=== PATIENT | female | born 1995 | race Caucasian/White ===

== ENCOUNTER 2023-03-20 21:58 | Inpatient (IN) | payer BC ==
[2023-03-20] MEDS ORDERED: Lidocaine 1% 50 ML MDV INJECT ONE (22:28)
[2023-03-20] MEDS ORDERED: Sodium Chloride 0.9% 10 ML Syringe FLUSH PRN (22:28)
[2023-03-20] MEDS ORDERED: Nalbuphine HCl 10 MG/ 1ML Amp IVPUSH PRN (22:28)
[2023-03-20] MEDS ORDERED: Ondansetron 4 MG/2 ML SDV IVPUSH PRN (22:28)
[2023-03-20] MEDS ORDERED: Oxytocin/Lactated Ringers 10 UNIT/1,000 ML BAG IV SCH (22:30)
[2023-03-20] MEDS ORDERED: Ampicillin 2 GM in Sodium Chloride 0.9% 100 ML IV ONE (22:45)
[2023-03-20 22:46] LABS: BASOPHILS PERCENT AUTO 0.2 % (0.0-1.0); EOSINOPHILS ABSOLUTE AUTO 0.4 K/mm3 (0.0-0.4); EOSINOPHILS PERCENT AUTO 3.3 % (0.0-6.0); HEMATOCRIT 35.5 % (37.0-47.0); HEMOGLOBIN 12.5 gm/dl (12.0-16.0); IMMATURE GRAN ABSOLUTE AUTO 0.05 K/mm3 (0.00-0.05); IMMATURE GRAN PERCENT AUTO 0.4 % (0.0-0.4); LYMPHOCYTES ABSOLUTE AUTO 2.1 K/mm3 (1.0-4.8); LYMPHOCYTES PERCENT AUTO 18.5 % (24.0-44.0); MEAN CORPUSCULAR HGB CONC 35.2 g/dl (32.0-36.0); MEAN CORPUSCULAR VOLUME 88.1 fl (83.0-99.0); MEAN PLATELET VOLUME 9.6 fl (9.4-12.3); MONOCYTES ABSOLUTE AUTO 0.8 K/mm3 (0.0-0.8); MONOCYTES PERCENT AUTO 7.1 % (0.0-8.0); NEUTROPHILS PERCENT AUTO 70.5 % (41.0-71.0); PLATELET COUNT,PLT 269 K/mm3 (150-400); RED BLOOD CELL COUNT 4.03 M/mm3 (4.10-5.30); WHITE BLOOD CELL COUNT,WBC 11.32 K/mm3 (3.9-11.3)
[2023-03-20] MEDS: Lactated Ringers 1,000 ML IV SCH (23:00)
[2023-03-21] MEDS: Lactated Ringers 1,000 ML IV SCH ×2 (00:44→02:37)
[2023-03-21] MEDS ORDERED: diphenhydrAMINE 50 MG/ML SDV IVPUSH PRN (01:23)
[2023-03-21] MEDS ORDERED: Bupivacaine/fentaNYL/NS 100 ML Bag EPIDUR PRN (01:23)
[2023-03-21] MEDS ORDERED: ePHEDrine 50 MG/ML SDV IVPUSH PRN (01:23)
[2023-03-21] MEDS ORDERED: fentaNYL 100 MCG/2 ML SDV EPIDUR PRN (01:23)
[2023-03-21] MEDS: Ampicillin 1 GM in Sodium Chloride 0.9% 100 ML IV SCH ×2 (02:37→07:18)
[2023-03-21] MEDS ORDERED: Lidocaine 1.5% with EPINEPHrine 1:200,000 5 ML Amp ONE (06:00)
[2023-03-21] MEDS ORDERED: Bupivacaine 0.25% 10 ML SDV ONE (06:00)
[2023-03-21] MEDS ORDERED: Hydrocortisone Acetate 25 MG Supp RECTAL PRN (10:14)
[2023-03-21] MEDS ORDERED: Benzocaine/Menthol 20%-0.5% Spray 78 GM Cannister TOP PRN (10:14)
[2023-03-21] MEDS ORDERED: Acetaminophen 325 MG Tab PO PRN (10:14)
[2023-03-21] MEDS ORDERED: Docusate Sodium 100 MG Cap PO PRN (10:14)
[2023-03-21] MEDS ORDERED: Magnesium Hydroxide 400 MG/5 ML Susp 30 ML Cup PO PRN (10:14)
[2023-03-21] MEDS ORDERED: Oxytocin/Lactated Ringers 10 UNIT/1,000 ML BAG IV SCH (10:15)
[2023-03-21] MEDS: Witch Hazel Medicated Pads 40/Jar TOP PRN (12:10)
[2023-03-21] MEDS: Ibuprofen 600 MG Tab PO PRN ×2 (15:09→21:12)
[2023-03-22] MEDS: Ibuprofen 600 MG Tab PO PRN (02:20)
[2023-03-22] MEDS ORDERED: Prenatal Multivitamin with Calcium/Folic Acid/Iron Tab PO SCH (09:00)
[2023-03-22] MEDS: Witch Hazel Medicated Pads 40/Jar TOP PRN (13:27)
== END 2023-03-22 16:20 | disposition home or self-care (01) | DRG 560 ==
LOC: JD.OBCHECK 21:58 → JD.OB 22:05 → JD.OBCHECK 22:28 → JD.OB 22:28 → OBSVTOIN 03-21 08:36 → JD.OB 03-21 08:37
PROVIDERS: ADMIT Obstetrics & Gynecology; ATTEND Obstetrics & Gynecology
PROC: 10E0XZZ Delivery of Products of Conception, External Approach (ICD-10-PCS; principal; 2023-03-21)
PROC: 0KQM0ZZ Repair Perineum Muscle, Open Approach (ICD-10-PCS; 2023-03-21)
PROC: 3E0R3BZ Introduction of Anesthetic Agent into Spinal Canal, Percutaneous Approach (ICD-10-PCS; 2023-03-21)
PROC: 00HU33Z Insertion of Infusion Device into Spinal Canal, Percutaneous Approach (ICD-10-PCS; 2023-03-21)
DX: O99.824 Streptococcus B carrier state complicating childbirth (principal); Z37.0 Single live birth; O70.1 Second degree perineal laceration during delivery; Z3A.38 38 weeks gestation of pregnancy
CPT/HCPCS: 36415; 51702; 59025; 59409; 85025; 86592; 86850; 86900; 86901; A9270-GY; J0290; J2405; J2590; J3010; J3490; J7120

== ENCOUNTER 2024-08-29 20:25 | Inpatient (IN) | payer BC, OTHER ==
[2024-08-25] MEDS: Terbutaline 1 MG/ML SDV SUBCUT ONE (12:18)
[~2024-08-29 20:25] MED LIST: Ondansetron 4 MG/2 ML SDV IVPUSH ONE; Sodium Chloride 0.9% 10 ML Syringe FLUSH PRN; ePHEDrine 50 MG/ML SDV ONE
[2024-08-29] MEDS ORDERED: Calcium Carbonate 500 MG Tab.Chew PO PRN (21:22)
[2024-08-29] MEDS ORDERED: Lidocaine 1% 50 ML MDV INJECT PRN (21:22)
[2024-08-29] MEDS ORDERED: Sodium Chloride 0.9% 10 ML Syringe FLUSH PRN (21:22)
[2024-08-29] MEDS ORDERED: Oxytocin/0.9 % Sodium Chloride 30 UNIT/500 ML BAG IV SCH (21:30)
[2024-08-29 21:43] LABS: BASOPHILS PERCENT AUTO 0.3 % (0.0-1.0); EOSINOPHILS ABSOLUTE AUTO 0.1 K/mm3 (0.0-0.4); EOSINOPHILS PERCENT AUTO 1.3 % (0.0-6.0); HEMOGLOBIN 12.7 gm/dl (12.0-16.0); IMMATURE GRAN ABSOLUTE AUTO 0.11 K/mm3 (0.00-0.05); IMMATURE GRAN PERCENT AUTO 1.1 % (0.0-0.4); LYMPHOCYTES ABSOLUTE AUTO 1.1 K/mm3 (1.0-4.8); LYMPHOCYTES PERCENT AUTO 11.7 % (24.0-44.0); MEAN CORPUSCULAR HEMOGLOBIN 28.9 pg (28.0-32.0); MEAN CORPUSCULAR HGB CONC 33.4 g/dl (32.0-36.0); MEAN CORPUSCULAR VOLUME 86.6 fl (83.0-99.0); MEAN PLATELET VOLUME 9.5 fl (9.4-12.3); MONOCYTES ABSOLUTE AUTO 0.8 K/mm3 (0.0-0.8); MONOCYTES PERCENT AUTO 7.9 % (0.0-8.0); NEUTROPHILS ABSOLUTE AUTO 7.6 K/mm3 (1.8-7.7); NEUTROPHILS PERCENT AUTO 77.7 % (41.0-71.0); PLATELET COUNT,PLT 260 K/mm3 (150-400); RED BLOOD CELL COUNT 4.39 M/mm3 (4.10-5.30); WHITE BLOOD CELL COUNT,WBC 9.75 K/mm3 (3.9-11.3)
[2024-08-29] MEDS: Lactated Ringers 1,000 ML IV SCH (22:56)
[2024-08-29] MEDS: Ondansetron 4 MG/2 ML SDV IVPUSH PRN (22:56)
[2024-08-29] MEDS: Sodium Chloride 0.9% 10 ML Syringe FLUSH SCH (23:33)
[2024-08-30] MEDS: Nalbuphine 10 MG/1 ML Vial IVPUSH PRN
[2024-08-30] MEDS ORDERED: ePHEDrine 50 MG/ML SDV IVPUSH PRN (02:42)
[2024-08-30] MEDS ORDERED: diphenhydrAMINE 50 MG/ML SDV IVPUSH PRN (02:42)
[2024-08-30] MEDS: Bupivacaine/fentaNYL/NS 100 ML Bag EPIDUR PRN (02:46)
[2024-08-30] MEDS: Oxytocin/0.9 % Sodium Chloride 30 UNIT/500 ML BAG IV SCH (04:50)
[2024-08-30] MEDS ORDERED: Docusate Sodium 100 MG Cap PO PRN (06:16)
[2024-08-30] MEDS: Ibuprofen 600 MG Tab PO SCH (07:45)
[2024-08-30] MEDS ORDERED: Sodium Chloride 0.9% 10 ML Syringe FLUSH SCH (09:00)
[2024-08-30] MEDS: Acetaminophen 325 MG Tab PO PRN (17:01)
[2024-08-31] MEDS: Benzocaine/Menthol 20%-0.5% Spray 78 GM Cannister TOP PRN (00:22)
[2024-08-31] MEDS: Witch Hazel Medicated Pads 40/Jar TOP PRN (00:23)
== END 2024-08-31 13:40 | disposition home or self-care (01) | DRG 807 ==
LOC: JD.OBCHECK 20:25 → JD.OB 20:34 → INTOOBSV 08-30 05:06 → OBSVTOIN 08-30 05:06 → JD.OB 08-30 05:07 → OBSVTOIN 08-30 05:21
PROVIDERS: ADMIT Obstetrics & Gynecology; ATTEND Obstetrics & Gynecology
PROC: 3E0R3BZ Introduction of Anesthetic Agent into Spinal Canal, Percutaneous Approach (ICD-10-PCS; principal; 2024-08-30)
PROC: 0KQM0ZZ Repair Perineum Muscle, Open Approach (ICD-10-PCS; principal; 2024-08-30)
PROC: 10E0XZZ Delivery of Products of Conception, External Approach (ICD-10-PCS; principal; 2024-08-30)
DX: O99.62 Diseases of the digestive system complicating childbirth (principal); Z37.0 Single live birth; O70.1 Second degree perineal laceration during delivery; Z3A.38 38 weeks gestation of pregnancy; Z79.899 Other long term (current) drug therapy
CPT/HCPCS: 36415; 51701; 59025; 59409; 59412; 85025; 86592; 86850; 86900; 86901; 96372; A9270-GY; C1758; J2300; J2405; J3490; J7120; J7999